=== PATIENT | female | born 1965 | race Caucasian/White ===

== ENCOUNTER 2016-11-25 15:17 | Outpatient (CLI) | payer OTHER ==
--- NOTE | 2016-11-25 18:31 | DIAGNOSTIC IMAGING REPORT ---
PROCEDURE: MG BILATERAL DIAGNOSTIC W/CAD INDICATION: SCREENING, LEFT BREAST LUMP TECHNIQUE: CC and MLO digital views of each breast with true-lateral digital view of bilateral breasts. In addition, spot compression CC and MLO views were obtained of the upper inner left breast and lower central right breast. (region of concern). Finally, high-resolution left breast ultrasound was performed (18 mHz). COMPARISON: Compared to mammogram studies on 10/30/2015, 11/05/2013, and 10/06/2013. Comparison is made to left breast ultrasound on 04/29/2016. FINDINGS: MAMMOGRAM: Computer-aided detection applied. Dense parenchymal pattern with a few dystrophic calcifications. No definite focal mass is seen in the upper outer left breast. No evidence of abnormality in the caudal right breast. BREAST ULTRASOUND: There are multiple cysts (too numerous to count - - largest 1.5 cm)) in the upper inner left breast, some of which contain proteinaceous material (decreased proteinaceous material since prior study). No evidence of underlying abnormality. IMPRESSION: 1. Minimal change in multiple cysts in the upper inner left breast. 2. Otherwise negative mammogram and left breast ultrasound. 3. Resume routine screening mammogram schedule (November 2017). 4. Findings discussed with the patient. RESULT CODE: 2- Benign finding(s). A. A negative report should not delay biopsy if a dominant or clinically suspicious mass is present. 10-15% of cancers are not identified by x-ray. B. A negative report may reinforce clinical impression. C. Adenosis and dense breasts may obscure an underlying neoplasm. D. False positive reports average 6-10%. E.. A yearly screening mammogram is recommended. A reminder letter will be scheduled.
== END 2016-11-25 23:00 ==
LOC: MAM SRH 15:17
DX: N63 Unspecified lump in breast (principal)

== ENCOUNTER 2016-12-05 09:09 | Outpatient (CLI) | payer OTHER ==
--- NOTE | 2016-12-05 10:57 | DIAGNOSTIC IMAGING REPORT ---
PROCEDURE: US COMPLETE PELVIC W/TRANSVAG INDICATION: MENOMETRORRHAGIA TECHNIQUE: Transabdominal and endovaginal reese scale and color Doppler sonographic images of the female pelvis were obtained. COMPARISON: None. FINDINGS: TRANSABDOMINAL SCANS: Anteverted uterus measures 7.5 cm in length. Heterogeneous echotexture secondary to fibroids. There is a large simple cyst measuring 5.7 cm in the right adnexa associated with the right ovary. The left ovary is normal. The visible portion of the urinary bladder is normal. No significant free pelvic fluid. TRANSVAGINAL SCANS: The uterus is anteverted and anteflexed in position and has a heterogeneous myometrial echotexture. The uterus measures 5.8 x 3.7 x 5.3 cm. There is a myometrial/submucosal fibroid in the mid fundus which is slightly distorts the endometrial stripe. It measures 1.5 cm in greatest diameter and has mild internal vascularity. An exophytic mass arises from the right posterior fundus measuring about 1.9 cm in greatest diameter. A myometrial mass measures 2.3 cm in greatest diameter along the posterior midbody. The smallest hypoechoic subserosal/myometrial mass measures 1.2 cm. The endometrium is 4.2 mm in thickness. No endometrial fluid collections or suspicious masses. The right ovary measures 5.1 x 4.3 x 6.2 cm and contains a simple cyst measuring 4.7 x 4.1 x 5.3 cm. No suspicious solid component. Arterial and venous ovarian flow was detected. The left ovary measures 2.2 x 2.3 x 1.1 cm and has a normal follicular echotexture and normal vascularity. No suspicious adnexal masses or free pelvic fluid. IMPRESSION: 1. Normal size, fibroid uterus. 2. Normal thickness endometrium. One of the fibroids slightly distorts the fundal endometrium. This may be a contributor to dysfunctional uterine bleeding. 3. 5.3 cm simple right ovarian cyst. Given size and morphology, this is benign and no follow-up is necessary.
== END 2016-12-05 23:00 | disposition home or self-care (01) ==
LOC: US SRH 09:09
DX: D25.9 Leiomyoma of uterus, unspecified (principal); N83.201 Unspecified ovarian cyst, right side